=== PATIENT | female | born 2000 | race Caucasian/White ===

== ENCOUNTER → 2024-05-07 | Emergency (ER) | END | disposition left against medical advice (07) | LOC: ER 19:28 | DX: Z04.3 Encounter for examination and observation following other accident (principal); W19.XXXA Unspecified fall, initial encounter ==

== ENCOUNTER 2024-06-15 00:38 | Emergency (ER) | payer OTHER ==
[~2024-06-15] VITALS: Ht 160 cm; Wt 86.8 kg
[2024-06-15 00:58] VITALS: PULSE 116; RESP 18; TEMP 97.9
[2024-06-15] MEDS: SODIUM CHLORIDE 0.9% 1000ML 1,000 ML IV ONE (01:35)
[2024-06-15] MEDS: ONDANSETRON HCL INJ 2MG/ML 2ML 2 MG/ML VIAL IV STA ×2 (01:35→04:21)
[2024-06-15] MEDS ORDERED: LIDOCAINE20 MG/1 M1 IV (02:27)
[2024-06-15] MEDS ORDERED: ONDANSETRON ODT4 MG PO (03:55)
[2024-06-15 04:25] VITALS: BP 128/76; PULSE 88; RESP 18; TEMP 98; O2SAT 97
== END 2024-06-15 04:25 | disposition home or self-care (01) ==
LOC: FSED 00:51
DX: O21.1 Hyperemesis gravidarum with metabolic disturbance (principal); K52.9 Noninfective gastroenteritis and colitis, unspecified
CPT/HCPCS: 0223U; 80053; 80076; 81025; 85025; 87400; 96374; 99283; J2405; J7030